=== PATIENT | male | born 1990 | race Caucasian/White ===

== ENCOUNTER 2017-03-09 03:05 | Emergency (ER) | payer BC ==
[~2017-03-09] VITALS: Ht 185.4 cm; Wt 81.7 kg
[~2017-03-09 03:05] MED LIST: IBUPROFEN 600600 M1 PO; NORCO 5-325 TA1 EACH PO; ZANTAC 150MG T150 MG
[2017-03-09] MEDS ORDERED: VENTOLIN HFA 1818 GM INH (03:12)
[2017-03-09] MEDS ORDERED: ADVAIR 500-501 EACH INH (03:12)
[2017-03-09 03:33] LABS: ABSOLUTE NEUTROPHILS 5.5 thou/uL (1.4-8.2); EOSINOPHILS 3.5 % (0.0-3.0); HEMATOCRIT 44.1 % (42.0-52.0); HEMOGLOBIN 15.2 gm/dL (14.0-18.0); LYMPHOCYTES 30.1 % (24.0-44.0); MCH 31.3 pg (26.0-34.0); MCHC 34.4 g/dL (28.0-37.0); MONOCYTES 8.1 % (1.0-8.0); PLATELET COUNT 277 thou/uL (150-400); POLYS 57.3 % (36.0-66.0); RBC 4.84 mil/uL (4.50-6.00); WBC 9.6 thou/uL (4.0-11.0)
[2017-03-09 03:34] LABS: MANUAL DIFF NO
[2017-03-09 03:41] LABS: CALCIUM 9.2 mg/dL (8.5-10.1); POTASSIUM 3.4 mmol/L (3.5-5.1)
[2017-03-09 03:45] LABS: ALBUMIN 4.2 g/dL (3.4-5.0); TOTAL BILIRUBIN 0.4 mg/dL (<0.1-1.0); TOTAL PROTEIN 7.4 g/dL (6.4-8.2)
[2017-03-09] MEDS ORDERED: TRAMADOL 50 MG50 MG PO (05:26)
[2017-03-09] MEDS ORDERED: PRILOSEC 20 MG20 MG PO (05:26)
[2017-03-09] MEDS ORDERED: ZOFRAN ODT8 MG PO (05:26)
[2017-03-09 05:47] VITALS: BP 136/67
== END 2017-03-09 05:48 | disposition home or self-care (01) ==
LOC: ER 03:05
PROVIDERS: Emergency Medicine
DX: K92.0 Hematemesis (principal); R07.9 Chest pain, unspecified; J45.909 Unspecified asthma, uncomplicated